=== PATIENT | female | born 1980 | race Caucasian/White ===

== ENCOUNTER → 2023-07-24 | Outpatient (CLI) | payer BC ==
[2023-07-24 17:35] LABS: CLUE CELLS NOT OBSERVED (Not Observd)
== END ==
LOC: LAB 17:27
PROVIDERS: Nurse Practitioner Family
DX: R10.2 Pelvic and perineal pain (principal)
CPT/HCPCS: Q0111

== ENCOUNTER → 2024-06-13 | Outpatient (CLI) | payer BC ==
[2024-06-13 09:33] LABS: BASO # 0.05 K/mm3 (0.02-0.10); EOS # 0.19 K/mm3 (0.04-0.40); EOS % 2.3 % (1.0-5.0); HEMATOCRIT 41.3 % (37.0-47.0); LYMPH# 2.46 K/mm3 (1.50-4.00); MEAN CELL VOLUME 90 fl (78-100); MEAN CORPUSCULAR HEMOGLOBIN 30 pg (27-31); MEAN CORPUSCULAR HGB CONC 34 g/dL (33-37); MEAN PLATELET VOLUME 9.7 fl (7.4-10.4); NEU # 5.19 K/mm3 (1.40-6.50); PLATELET COUNT 285 K/mm3 (130-400); RED BLOOD COUNT 4.61 M/mm3 (4.10-5.30); RED CELL DISTRIBUTION WIDTH 11.7 % (11.5-14.5); WHITE BLOOD COUNT 8.4 K/mm3 (4.8-10.8)
[2024-06-13 09:46] LABS: ALBUMIN 4.4 g/dL (3.5-5.0)
[2024-06-13 09:47] LABS: CALCIUM 9.3 mg/dL (8.3-10.5)
[2024-06-13 09:48] LABS: TOTAL PROTEIN 7.1 g/dL (6.4-8.3)
[2024-06-13 09:50] LABS: TOTAL BILIRUBIN 0.4 mg/dL (0.2-1.2)
[2024-06-17 09:13] LABS: ALTERNARIA TENUIS CNT <0.10 kU/L (Class 0); ASPERGILLUS FUMIGATUS AL COUNT <0.10 kU/L (Class 0); BAKERS YEAST ALLERGEN COUNT <0.10 kU/L (Class 0); BERMUDA GRASS ALLERGEN COUNT <0.10 kU/L (Class 0); BOX ELDER-MAPLE ALLERGEN COUNT <0.10 kU/L (Class 0); CAT DANDER ALLERGEN COUNT <0.10 kU/L (Class 0); CLADOSPORIUM ALLERGEN COUNT <0.10 kU/L (Class 0); COCKROACH ALLERGEN COUNT 0.37 kU/L (Class I); CORN ALLERGEN COUNT <0.10 kU/L (Class 0); COTTONWOOD TREE ALLERGEN COUNT <0.10 kU/L (Class 0); DOG DANDER ALLERGEN COUNT <0.10 kU/L (Class 0); DUST MITES (D.F.) ALLERG COUNT 0.29 kU/L (()); DUST MITES (D.P.) ALLERG COUNT 0.14 kU/L (()); EGG WHITE ALLERGEN COUNT <0.10 kU/L (Class 0); ELM TREE ALLERGEN COUNT <0.10 kU/L (Class 0); FIREBUSH ALLERGEN COUNT <0.10 kU/L (Class 0); MILK ALLERGEN COUNT <0.10 kU/L (Class 0); OAK ALLERGEN COUNT <0.10 kU/L (Class 0); ORANGE ALLERGEN COUNT <0.10 kU/L (Class 0); PEANUT ALLERGEN COUNT <0.10 kU/L (Class 0); RICE ALLERGEN COUNT <0.10 kU/L (Class 0); ROUGH MARSH ELDER ALLERG COUNT <0.10 kU/L (Class 0); RUSSIAN THISTLE ALLERGEN COUNT <0.10 kU/L (Class 0); SHORT RAGWEED ALLERGEN COUNT <0.10 kU/L (Class 0); SOYBEAN ALLERGEN COUNT <0.10 kU/L (Class 0); STRAWBERRY ALLERGEN COUNT <0.10 kU/L (Class 0); TOMATO ALLERGEN COUNT <0.10 kU/L (Class 0); WHEAT ALLERGEN COUNT <0.10 kU/L (Class 0)
== END ==
LOC: LAB 09:06
PROVIDERS: Family Medicine
DX: E78.5 Hyperlipidemia, unspecified (principal); I10 Essential (primary) hypertension; J30.9 Allergic rhinitis, unspecified